=== PATIENT | male | born 1960 | race Caucasian/White ===

== ENCOUNTER 2020-02-24 10:58 | Outpatient (NON) | payer SELFPAY ==
[2020-02-25 17:00] LABS: SARS-CoV-2 RNA PCR Negative
== END 2020-02-24 10:59 ==
PROVIDERS: PCP Internal Medicine; Visit Provider Internal Medicine
DX: Z20.828 Contact with and (suspected) exposure to other viral communicable diseases (principal)
CPT/HCPCS: 87635; C9803; U0003

== ENCOUNTER 2020-08-07 00:38 | Outpatient (CLI) | payer OTHER, SELFPAY ==
[2020-08-07 19:58] LABS: SARS-CoV-2 RNA PCR Negative
== END 2020-08-07 00:39 | disposition home or self-care (01) ==
LOC: ANHCOVIDDT 00:38
PROVIDERS: PCP Internal Medicine; Visit Provider Internal Medicine Gastroenterology
DX: Z01.812 Encounter for preprocedural laboratory examination (principal); Z20.828 Contact with and (suspected) exposure to other viral communicable diseases
CPT/HCPCS: 87635; C9803; U0003

== ENCOUNTER 2020-08-09 03:14 | Day surgery (SDC) | payer OTHER, SELFPAY ==
[2020-08-02 10:58] VITALS: BMI 22.1
[2020-08-09] MEDS: LACTATED RINGERS 1,000 ML 150 ML IV CONT (09:00)
[2020-08-09 09:01] VITALS: BP 130/88; PULSE 86; RESP 14; TEMP 36.8; O2SAT 100; BMI 21.6
--- NOTE | 2020-08-09 09:30 | WPDANESEPPF ---
Anes - Initial Pre Proc Eval Procedure: Operation Date: 08/09/20 10:30 Proposed Procedures p Screening Colonoscopy - Josue Ferrari MD Date/Time: 08/09/20 09:30 Surgeon: Josue Ferrari MD Pre Op Diagnosis: Neoplasm Screening Patient Data Age: 60 Gender: M Height: 6 ft 1 in Weight: 74.4 kg Last Vital Signs Temp 36.8 C 08/09/20 09:01 Pulse 86 08/09/20 09:01 Resp 14 08/09/20 09:01 BP 130/88 08/09/20 09:01 Pulse Ox 100 08/09/20 09:01 Allergies Allergy/AdvReac Type Severity Reaction Status Date / Time Sulfa (Sulfonamide Allergy Mild Rash Verified 08/09/20 09:01 Antibiotics) Penicillins Allergy Unknown Unknown Verified 08/09/20 09:01 Home Medications Medication Instructions Recorded Confirmed Type escitalopram oxalate 20 mg tablet 20 mg PO DAILY #30 tablet 06/07/20 08/02/20 Rx omeprazole 20 mg capsule,delayed 20 mg PO DAILY 06/28/20 08/02/20 History release peg 3350-electrolytes 236 240 ml PO Q10M #4000 ml 07/17/20 Rx gram-22.74 gram-6.74 gram-5.86 gram solution multivitamin,[id number] 1 tablet PO DAILY 08/02/20 08/02/20 History [Complete Multivitamin] trazodone 50 mg PO .COMPLEX PRN 08/02/20 08/02/20 History Patient hx anesthesia problems: none Family hx anesthesia problems: none PMFSH Past Medical History Medical History Alcohol abuse Depression Insomnia disorder Left hip pain Screening for colon cancer Family History Family History Sibling Family history of chronic obstructive pulmonary disease Father Family history of diabetes mellitus in first degree relative Family history of chronic obstructive pulmonary disease Mother Family history of malignant neoplasm, Onset Age: 72 Other Diabetes mellitus Family history of cardiovascular disease Social History Social History Smoking packs per day: 1 Smoking cigarettes per day: 20.0 Years smoked: 40 Smoking pack-years: 40.00 Smoking status: Current every day smoker Tobacco type: cigarettes Second hand tobacco smoke exposure: Yes Alcohol intake: current Drinks per week: 6 Substance use: never Substance use type: does not use Living arrangements: with family Spiritual care concerns: No Anes - Eval Final PreProcedure Day of Procedure 08/09/20 09:30 Patient weight: normal Heart: regular rate and rhythm Lungs: decreased breath sounds Airway: Mallampati scale class II Neurological: alert and oriented Last oral intake: >/= 8 hours ASA classification: III Emergent: no Anesthetic plan: proceed Anesthesia type and monitoring: general GIVS and standard monitoring Informed Consent: The patient's anesthetic plan and its attendant risks and benefits were discussed with the patient/family/POA. Questions were solicited and answers provided to the satisfaction of the patient/family/POA.
--- NOTE | 2020-08-09 10:04 | PM.HPGS ---
History of Present Illness History of Present Illness Consent: Risks, benefits, and alternatives have been discussed and questions answered. Patient agrees to proceed with procedure. Chief complaint: Neoplasm Screening Narrative: Roscoe Rose is a 60 year old male here for first screening colonoscopy Review of Systems Constitutional: Constitutional: Denies headache(s) and Denies weakness Eyes: Eyes: Denies blurry vision ENT: Reports Normal hearing present, Denies headache(s) and Denies neck pain Cardiovascular: Cardiovascular: Denies chest pain and Denies dyspnea Respiratory: Respiratory: Denies dyspnea Gastrointestinal: Gastrointestinal: Reports no additional gastrointestinal complaints Genitourinary: Genitourinary: Denies dysuria Musculoskeletal: Musculoskeletal: Denies neck pain Integumentary/Breasts: Skin/Breast: Denies dry skin Neurologic: Reports Normal hearing present, Denies headache(s) and Denies weakness Psychiatric: Psychiatric: Denies anxiety Endocrine: Endocrine: Denies change in body appearance Hematologic/Lymphatic: Hematologic/Lymphatic: Denies easy bleeding Allergic/Immunologic: Allergic/Immunologic: Denies urticaria PMFSH Past Medical History Medical History Alcohol abuse Depression Insomnia disorder Left hip pain Screening for colon cancer Family History Family History Sibling Family history of chronic obstructive pulmonary disease Father Family history of diabetes mellitus in first degree relative Family history of chronic obstructive pulmonary disease Mother Family history of malignant neoplasm, Onset Age: 72 Other Diabetes mellitus Family history of cardiovascular disease Social History Social History Smoking packs per day: 1 Smoking cigarettes per day: 20.0 Years smoked: 40 Smoking pack-years: 40.00 Smoking status: Current every day smoker Tobacco type: cigarettes Second hand tobacco smoke exposure: Yes Alcohol intake: current Drinks per week: 6 Substance use: never Substance use type: does not use Living arrangements: with family Spiritual care concerns: No Meds Home Medications and Allergies Home Medications Medication Instructions Recorded Confirmed Type escitalopram oxalate 20 mg tablet 20 mg PO DAILY #30 tablet 06/07/20 08/02/20 Rx omeprazole 20 mg capsule,delayed 20 mg PO DAILY 06/28/20 08/02/20 History release peg 3350-electrolytes 236 240 ml PO Q10M #4000 ml 07/17/20 Rx gram-22.74 gram-6.74 gram-5.86 gram solution multivitamin,[id number] 1 tablet PO DAILY 08/02/20 08/02/20 History [Complete Multivitamin] trazodone 50 mg PO .COMPLEX PRN 08/02/20 08/02/20 History Allergies Allergy/AdvReac Type Severity Reaction Status Date / Time Sulfa (Sulfonamide Allergy Mild Rash Verified 08/09/20 09:01 Antibiotics) Penicillins Allergy Unknown Unknown Verified 08/09/20 09:01 Vital Signs Vital Signs - 24 hr 08/09/20 09:01 Temperature 98.2 F Pulse Rate 86 Respiratory Rate 14 Blood Pressure 130/88 Pulse Oximetry 100 Exam Const: General: comfortable and no acute distress HENMT: General nose exam: Normal nares present Eyes: General: appearance normal, both eyes and all related structures Neck: Neck: no JVD Resp: Auscultation: clear to auscultation bilaterally Cardio: Rate: regular rate Rhythm: regular rhythm GI: Inspection: non-distended GI Palp: Yes Soft to palpation Skin: General skin exam: normal color Neuro: General: gait normal Speech: normal speech Extrem: General: normal to inspection Psych: Mental Status: mental status grossly normal Assessment and Plan Assessment and plan (1) Screening for colon cancer: Code(s): Z12.11 - Encounter for screening for malignant neop
[2020-08-09 10:32] VITALS: BP 130/96; PULSE 80; RESP 23; O2SAT 100
[2020-08-09 10:42] VITALS: BP 135/97; PULSE 72; RESP 20; O2SAT 100
[2020-08-09 10:52] VITALS: BP 148/102; PULSE 71; RESP 16; O2SAT 100
== END 2020-08-09 11:02 | disposition home or self-care (01) ==
PROVIDERS: PCP Internal Medicine; Visit Provider Internal Medicine Gastroenterology
PROC: 0DJD8ZZ Inspection of Lower Intestinal Tract, Via Natural or Artificial Opening Endoscopic (ICD-10-PCS; CPT 45378; principal; 2020-08-09 10:30)
DX: Z12.11 Encounter for screening for malignant neoplasm of colon (principal); F32.9 Major depressive disorder, single episode, unspecified; F17.210 Nicotine dependence, cigarettes, uncomplicated
CPT/HCPCS: 45378; J2704; J7120

== ENCOUNTER 2022-06-04 12:42 | Outpatient (CLI) | payer OTHER, SELFPAY ==
--- NOTE | ~2022-06-04 | XR_ITS ---
XR chest 2V DATE: 06/04/2022 13:21 INDICATION: Hemoptysis. Fatigue. TECHNIQUE: PA and lateral views COMPARISON: None FINDINGS: Normal heart size. No hilar or mediastinal enlargement. No pulmonary infiltrate or consolid ation, pleural effusion or pulmonary vascular congestion or pneumothorax. IMPRESSION: No active cardiopulmonary disease Reviewed, dictated and finalized at location B.
== END 2022-06-04 12:43 | disposition home or self-care (01) ==
PROVIDERS: PCP Internal Medicine; Visit Provider Internal Medicine
DX: R04.2 Hemoptysis (principal)
CPT/HCPCS: 71046

== ENCOUNTER 2022-06-08 12:53 | Outpatient (CLI) | payer OTHER, SELFPAY ==
--- NOTE | ~2022-06-08 | CT_ITS ---
EXAMINATION:CT diagnostic chest wo con DATE: 06/08/2022 13:30 INDICATION: Hemoptysis. TECHNIQUE: Computed tomography (CT) of the chest was performed without intravenous contrast. Automate d exposure control and iterative reconstruction technique were employed. The dose-length product (DLP ) was 243.32 mGy-cm. COMPARISON: Chest 2 views 06/04/2022 FINDINGS: There is mild emphysema. There is mild scarring at left lung apex. No pleural effusion. The heart size is normal. There are coronary artery calcifications. No pericardial effusion. There are n o pathologically enlarged lymph nodes. There is severe cervical spondylosis and mild thoracic spondyl osis. IMPRESSION: 1. Mild emphysema. Reviewed, dictated and finalized at location A. IMPRESSION: 1. Mild emphysema.
== END 2022-06-08 12:54 | disposition home or self-care (01) ==
PROVIDERS: PCP Internal Medicine; Visit Provider Internal Medicine
DX: R04.2 Hemoptysis (principal); J43.9 Emphysema, unspecified
CPT/HCPCS: 71250

== ENCOUNTER 2022-06-19 12:14 | Outpatient (CLI) | payer OTHER, SELFPAY ==
--- NOTE | ~2022-06-19 | XR_ITS ---
EXAMINATION:XR cervical spine 4-5V DATE: 06/19/2022 12:36 INDICATION: Left arm weakness TECHNIQUE: AP, lateral, lateral swimmers and odontoid views of the cervical spine are provided. COMPARISON: None FINDINGS: Alignment is normal. There is straightening of the cervical spine. The odontoid is intact. No fracture is identified. There is severe loss of intervertebral disc space height at C6-7 and C7-T1 and moderate loss of intervertebral disc space height throughout the remainder of the cervical spine . The vertebral body heights are maintained. Degenerative osteophytes project from the anterior endpl ates of multiple vertebral bodies. There is severe facet and uncovertebral joint osteoarthritis at mu ltiple levels. Prevertebral soft tissues are normal. IMPRESSION: 1. Severe cervical spondylosis without acute findings. Reviewed, dictated and finalized at location B.
== END 2022-06-19 12:15 | disposition home or self-care (01) ==
PROVIDERS: PCP Internal Medicine; Visit Provider Internal Medicine
DX: R29.898 Other symptoms and signs involving the musculoskeletal system (principal); M47.813 Spondylosis without myelopathy or radiculopathy, cervicothoracic region
CPT/HCPCS: 72050

== ENCOUNTER 2022-06-25 14:36 | Outpatient (CLI) | payer OTHER, SELFPAY ==
--- NOTE | ~2022-06-25 | MR_ITS ---
EXAMINATION: MR cervical spine wo con DATE: 06/25/2022 15:12 INDICATION: Left arm weakness. TECHNIQUE: Magnetic resonance imaging (MRI) of the cervical spine was performed without intravenous c ontrast. Sequences included sagittal T2-weighted FSE, sagittal T2-weighted FS FSE, sagittal T1-weight ed FSE, axial MERGE, and axial T2-weighted FSE. COMPARISON: Cervical spine radiographs 06/19/2022 FINDINGS: There is 8 degrees dextrocurvature of cervical spine. There is 2 mm retrolisthesis of C3 on C4. Vertebral body heights are normal. There is moderately decreased disc height at C3-C4, mildly de creased disc height at C4-C5, moderately decreased disc height at C5-C6, and severely decreased disc height at C6-C7 and C7-T1. The spinal cord signal intensity is normal. The following disc levels are specifically discussed: C2-C3: There is a central protrusion with annular fissure. There is mild bilateral uncovertebral join t osteoarthritis. There is severe bilateral facet joint osteoarthritis. There is mild bilateral neura l foraminal stenosis. There is mild central canal stenosis. C3-C4: The disc is bulging. There is severe bilateral uncovertebral joint osteoarthritis. There is mo derate bilateral facet joint osteoarthritis. There is moderate bilateral neural foraminal stenosis. T here is mild central canal stenosis. C4-C5: The disc is bulging with superimposed right central extrusion. There is moderate right and sev ere left uncovertebral joint osteoarthritis. There is mild bilateral facet joint osteoarthritis. Ther e is moderate left neural foraminal stenosis. There is mild central canal stenosis. C5-C6: The disc is bulging. There is severe bilateral uncovertebral joint osteoarthritis. There is mi ld right and moderate left facet joint osteoarthritis. There is mild right and severe left neural for aminal stenosis. There is mild central canal stenosis. C6-C7: The disc is bulging. There is severe bilateral uncovertebral joint osteoarthritis. There is mo derate bilateral facet joint osteoarthritis. There is severe right and mild left neural foraminal rick nosis. There is mild central canal stenosis. C7-T1: The disc is bulging. There is severe bilateral uncovertebral joint osteoarthritis. There is se rodolfo bilateral facet joint osteoarthritis. There is moderate bilateral neural foraminal stenosis. The re is mild central canal stenosis. IMPRESSION: 1. Severe cervical spondylosis. Reviewed, dictated and finalized at location A.
== END 2022-06-25 14:37 | disposition home or self-care (01) ==
PROVIDERS: PCP Internal Medicine; Visit Provider Internal Medicine
DX: M47.813 Spondylosis without myelopathy or radiculopathy, cervicothoracic region (principal); R29.898 Other symptoms and signs involving the musculoskeletal system
CPT/HCPCS: 72141